=== PATIENT | female | born 1990 | race American Indian/Alaskan Native ===

== ENCOUNTER 2017-04-21 11:57 | Outpatient (CLI) | payer BC ==
--- NOTE | 2017-04-21 13:51 | Ultrasound Report ---
BILATERAL DIGITAL DIAGNOSTIC MAMMOGRAM with CAD and RIGHT BREAST ULTRASOUND: 04/21/17 12:09:00 CLINICAL: 27-year-old with a palpable right subareolar lump. History of bilateral reduction mammoplasty. COMPARISON:None. FINDINGS: Ultrasound of the right breast was initially performed to evaluate the palpable lump and ultrasound demonstrated an oval solid hypoechoic shadowing subareolar mass at 12 o'clock measuring 5 x 5 x 4 mm. A mammogram was added and demonstrated predominantly fatty breasts. A heavily calcified right subareolar mass at 12 o'clock measures 8 x 8 x 7 mm and correlates with the mass identified ultrasound. No other mass is identified. A 2 mm benign calcification is also identified subareolar in the upper outer quadrant. The left breast is negative with three relatively large calcifications. The largest measures 3 mm. IMPRESSION: An 8mm benign right subareolar breast mass correlates with the palpable finding. This mass along with a lateral benign calcifications is consistent with benign fat necrosis. No suspicious finding. BI-RADS CATEGORY: 2 -- Benign RECOMMENDATION: Clinical follow-up and routine mammographic screening based on ACS guidelines. ACR BI-RADS MAMMOGRAPHIC CODES: 0 = Needs additional imaging evaluation; 1 = Negative; 2 = Benign; 3 = Probably benign; 4 = Suspicious; 5 = Malignant; 6 = Known biopsy-proven malignancy COMMENT: 1. Dense breast tissue, i.e., adenosis, fibrocystic changes, etc., may obscure an underlying neoplasm. 2. Approximately 10% of cancers are not detected with mammography. 3. A negative mammography report should not delay biopsy if a clinically suspicious mass is present. COMMENT: Patient follow-up letters are generated by our [employer] ([employer]) application.
== END 2017-04-21 11:58 | disposition home or self-care (01) ==
LOC: US 11:57
PROVIDERS: ATTEND Obstetrics & Gynecology
DX: N63 Unspecified lump in breast (principal)
CPT/HCPCS: 76642; G0204; 77066